=== PATIENT | female | born 1980 | race Caucasian/White ===

== ENCOUNTER 2019-12-18 06:11 | Emergency (ER) | payer OTHER ==
[~2019-12-18] VITALS: Ht 175.3 cm; Wt 59.0 kg
[2019-12-18 06:27] VITALS: BP 101/60
== END 2019-12-18 09:10 | disposition left against medical advice (07) ==
LOC: ER 06:42
DX: Z53.21 Procedure and treatment not carried out due to patient leaving prior to being seen by health care provider (principal)